=== PATIENT | female | born 1975 | race American Indian/Alaskan Native ===

== ENCOUNTER 2021-08-11 07:00 | Day surgery (SDC) | payer BC ==
[2021-08-08 10:35] LABS: Hematocrit 38.4 % (30.3-42.9); Hemoglobin 12.5 gm/dl (10.1-14.3); Mean Corpuscular HGB Conc 33 % (30-34); Mean Corpuscular Volume 84 fl (79-97); Platelet Count 323 K/mm3 (140-440); Red Blood Count 4.56 M/mm3 (3.65-5.03); Red Cell Distribution Width 13.9 % (13.2-15.2)
--- NOTE | 2021-08-10 12:50 | Short Stay Summary ---
Short Stay Documentation Date of service: 08/04/21 Narrative H&P: Menstrual History: LMP (date): 07/21/2021 LMP - Character: heavy LMP - Reliable: definite Menarche: 10 Menses interval: irregular days Menstrual flow: 7 days On BCP's at conception: no Date of positive (+) home preg. 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 Uterine Surgery (not C/S): negative Operations: Breast Reduction: (2007) PROBATION WORKER Surgery (10/14/2010) Hysteroscopic polypectomy Gastric Bypass: Sleeve (08/13/2015) yuliet Johnson; revision (2018) D&C:(2010) Cholecystectomy (2016) Abnormal PAP: negative Uterine Anomaly: positive, fibroid SUNIL Exposure: negative Infertility: negative Infection History HIV Risk Eval: no Hx of STD: none Active Medications (reviewed today): ibuprofen unspecified unspecified (ibuprofen) phentermine unspecified unspecified (phentermine) multivitamin tablet (multivitamin) Vitamin D3 50 mcg (2,000 unit) capsule (cholecalciferol (vitamin d3)) ferrous sulfate 325 mg (65 mg iron) tablet (ferrous sulfate) 1 tablet by mouth once a day Epiduo Forte 0.3-2.5% gel with pump (adapalene-benzoyl peroxide) Hair, Skin and Nails Advanced 3.3 mg iron-25 mcg tablet (multivit [id number] 186) Current Allergies (reviewed today): No known allergies Past Medical History: h/o Hypertension Allergies-seasonal Blood Transfusion (06/23/2020) Fe infusion (~2016)(2020) h/o Anemia Vitamin D deficiency Endometrial polyps (2010)(2020) Past Surgical History: Reviewed history from 07/18/2021 and no changes required: Breast Reduction: (2007) PROBATION WORKER Surgery (10/14/2010) Hysteroscopic polypectomy Gastric Bypass: Sleeve (08/13/2015) yuliet Johnson; revision (2017) D&C:(2010) Cholecystectomy (2016) Family History Summary: Reviewed history Last on 07/18/2021 and no changes required:08/10/2021 Other Family Member - Has No Family History of Uterine Cancer - Entered On: 12/01/2017 Other Family Member - Has No Family History of Small Bowel Cancer - Entered On: 12/01/2017 Other Family Member - Has No Family History of Stomach Cancer - Entered On: 12/01/2017 Other Family Member - Has No Family History of Pancreatic Cancer - Entered On: 12/01/2017 Other Family Member - Has No Family History of Ovarvian Cancer - Entered On: 12/01/2017 Other Family Member - Has No Family History of Kidney/Urinary Tract Cancer - Entered On: 12/01/2017 Other Family Member - Has No Family History of Spontaneous DVT-PE - Entered On: 12/01/2017 Other Family Member - Has No Family History of Colon Cancer - Entered On: 12/01/2017 Other Family Member - Has No Family History of Brain Cancer - Entered On: 12/01/2017 Other Family Member - Has No Family History of Biliary Tract Cancer - Entered On: 12/01/2017 MGM - Has Family History Breast Cancer - Entered On: 12/01/2017 General Comments - FH: Family History Breast Cancer MGM No Family History of Colon Cancer No Family History of Ovarvian Cancer No Family History of DVT/PE on OCP Social History: Reviewed history from 11/07/2017 and no changes required: Patient is Smoking History: Patient has never smoked. Risk Factors: Smoked Tobacco Use: Never smoker Smokeless Tobacco Use: Never Passive Smoke Exposure: no HIV High Risk Behavior: no Exercise: yes Seatbelt Use: 100 % PAP Smear History: Date of Last PAP Smear: 07/18/2021 Results: Normal Alcohol Use: yes Type: occ Drinks per day: social Drug Use: no Previous Tobacco Use: Signed On - 07/18/2021 Smoked Tobacco Use: Never smoker Smokeless Tobacco Use: Never Passive Smoke Exposure: no HIV High Risk Behavior: no Caffeine Use: <1 drinks per day Exercise: yes Times/wk: 2 Type of Exercise: walking Seatbelt Use: 100 % No Dietary Counseling Reason: pn yes Alcohol Use: yes Type: occ Drinks per day: social Drug Use: no Review of Systems General Denies fever, chills, sweats, anorexia, fatigue, weakness, malaise, weight loss and sleep disorder. Complains of menorrhagia. Denies vaginal discharge, incontinence, dysuria, hematuria, urinary frequency, amenorrhea, abnormal vaginal bleeding, pelvic pain, genital sores, decreased libido, painful periods, painful sex, urinary urgency, hot flashes, vaginal dryness, vaginal itching and vaginal odor. CV Denies chest pains, palpitations, syncope, dyspnea on exertion, orthopnea, PND and peripheral edema. Resp Denies cough, dyspnea at rest, excessive sputum, hemoptysis, wheezing and pleurisy. GI Denies nausea, vomiting, diarrhea, constipation, change in bowel habits, abdominal pain, melena, hematochezia, jaundice, gas/bloating, indigestion/heartburn, dysphagia and odynophagia. Endo Denies cold intolerance, heat intolerance, polydipsia, polyphagia, polyuria and unusual weight change. Breast Denies left breast lump, right breast lump, nipple discharge, bloody discharge from nipple, breast pain, abnormal mammogram and breast enlargement. MS Denies back pain, joint pain, joint swelling, muscle cramps, muscle weakness, stiffness, arthritis, sciatica, restless legs, leg pain at night and leg pain with exertion. Derm Denies rash, itching, dryness and suspicious lesions. Neuro Denies paralysis, paresthesias, headache, seizures, tremors, vertigo, transient blindness, frequent falls, frequent headaches and difficulty walking. Psych Denies depression, anxiety, irritability and mood swings. Eyes Denies blurring, diplopia, irritation, discharge, vision loss, eye pain and photophobia. ENT Denies earache, ear discharge, tinnitus, decreased hearing, nasal congestion, nosebleeds, sore throat and hoarseness. Allergy Denies urticaria, allergic rash, hay fever and recurrent infections. Heme Denies abnormal bruising, bleeding and enlarged lymph nodes. Physical Exam Appearance: well developed, well nourished, no acute distress Other Exams Lungs: no rales, rhonchi, or wheezes Heart: S1, S2, no murmur, rub, or gallop Genitourinary Exam Uterus: deferred for EUA Impression & Recommendations: Problem # 1: Excessive and frequent menstruation with irregular cycle (ICD- 626.6) (XNU64-V16.1) Diagnosis explained to patient . Questions answered. Discussed with patient various medical and surgical therapies common for treatment: Hormonal/medical therapy,endometrial ablation or hysterectomy. She desires conservative surgical intervention at this time in the form of D&C with polypectomy. She was informed her heavy bleeding may persist or recur. She desires fertility. Consent reviewed and signed . Possible laparoscopy or laparotomy explained to patient. The risks and alternatives for this surgery were reviewed with the patient. She was informed of possible, but not limited to, bleeding, infection,uterine perforation, scarring that may cause infertility, injury to bowel, bladder, ureters or other adjacent organs. The patient was instructed/informed the following: The normal length of hospital stay for this procedure. Nothing to eat or drink after midnight the evening prior to surgery. Pre-op instruction sheets given. Wound care instructions given. Infection precautions reviewed, patient to call for any signs or symptoms of infection. The usual discomforts associated with this procedure were detailed. Proper use of pain medicines was reviewed. Patient was given ample opportunity to have all her questions answered before signing informed consent. Her updated medication list for this problem includes: Ibuprofen Unspecified Unspecified (Ibuprofen) Multivitamin Tablet (Multivitamin) Vitamin D3 50 Mcg (2,000 Unit) Capsule (Cholecalciferol (vitamin d3)) Hair, Skin And Nails Advanced 3.3 Mg Iron-25 Mcg Tablet (Multivit [id number] 186) Problem # 2: Endometrial polyp (ICD-621.0) (AQQ30-S41.0) Problem # 3: Anemia secondary to blood loss (chronic) (ICD-280.0) (MUM44-I41.0) Problem # 4: Fibroids of uterus; Intramural (ICD-218.1) (FSJ45-V47.1) Problem # 5: Endometrium thickened (ICD-793.5) (ARV34-O55.89) Patient has been reassessed/reevaluated/re-examined. H&P has been reviewed. No interval changes. - Allergies and Medications Current Medications: Allergies No Known Allergies Allergy (Unverified 08/05/21 19:31) Home Medications Medication Instructions Recorded Confirmed Last Taken Type Elderberry Fruit and Flower [Black 1 each PO DAILY 08/05/21 08/05/21 Unknown History Elderberry 575 mg Cap] Ergocalciferol(Vitamin D2)(Nf) 400 unit PO DAILY 08/05/21 08/05/21 Unknown History [Vitamin D (Nf)] Ibuprofen [Motrin] 600 mg PO Q8H PRN 08/05/21 08/05/21 Unknown History Iron [Iron 18 MG TAB] 18 mg PO QDAY 08/05/21 08/05/21 Unknown History - Brief post op/procedure progress note Date of procedure: 08/11/21 Pre-op diagnosis: Menometrorrhagia, thickened endometrium, endometrial polyp, anemia Post-op diagnosis: same Procedure: Operative hysteroscopy with resection of endometrial polyps cervical dilation and uterine curettage Anesthesia: MAC Findings: Thickened endometrium with multiple small endometrial polyps. Surgeon: JORGE RUBI Estimated blood loss: minimal Pathology: list (Endometrial tissue and endometrial polyps) Specimen disposition: to lab Condition: stable - Hospital course Hospital course: Normal - Disposition Condition at discharge: Good Disposition: 01 HOME / SELF CARE / HOMELESS - Discharge Diagnoses (1) Menometrorrhagia Status: Acute (2) Thickened endometrium Status: Acute (3) Endometrial polyp Status: Acute (4) Anemia Status: Acute (5) Fibroids Status: Acute Short Stay Discharge Plan Activity: no restrictions (No sex for 1 week. Ambulate on her property approximately 1 mile a day.) Weight Bearing Status: Weight Bear as Tolerated Diet: regular (Eat small meals frequently for the next 24 hours.) Special Instructions: no heavy lifting (Greater than 25 pound) Follow up with: NICOLE HOGAN DO [Primary Care Provider] - 7 Days JORGE RUBI MD [Staff Physician] - (As scheduled)
[~2021-08-11 07:00] MED LIST: SODIUM CHLORIDE 0.9% IRRIG SOLN 2000 ML IR ONE
[2021-08-11] MEDS ORDERED: LACTATED RINGERS 1,000 ML ONE (07:47)
[2021-08-11] MEDS ORDERED: ONDANSETRON 4 MG/2 ML INJ IV PRN (08:04)
[2021-08-11] MEDS ORDERED: HYDROmorphone 1 MG/1 ML INJ IV PRN ×2 (08:04)
[2021-08-11] MEDS ORDERED: LACTATED RINGERS 1,000 ML IV SCH (08:15)
--- NOTE | 2021-08-11 08:16 | Anesthesia Consultation ---
Anesthesia Consult and Med Hx Date of service: 08/11/21 - Airway Anesthetic Teeth Evaluation: Good ROM Head & Neck: Adequate Mental/Hyoid Distance: Adequate Mallampati Class: Class II Intubation Access Assessment: Probably Good - Pre-Operative Health Status ASA Pre-Surgery Classification: ASA2 Proposed Anesthetic Plan: General - Pulmonary Hx Smoking: No Hx Asthma: No Hx Respiratory Symptoms: No (+2FS) COPD: No Hx Pneumonia: Yes Hx Sleep Apnea: Yes (Prior to gastric sleeve, resolved with weight loss) - Cardiovascular System Hx Hypertension: No - Central Nervous System Hx Psychiatric Problems: No - Gastrointestinal Hx Gastroesophageal Reflux Disease: No (Hiatal hernia) - Endocrine Hx End Stage Renal Disease: No - Hematic Hx Anemia: Yes Hx Sickle Cell Disease: No - Other Systems Hx Alcohol Use: Yes (Occas) Hx Cancer: No Hx Obesity: Yes
[2021-08-11] MEDS ORDERED: MIDAZOLAM 2 MG/2 ML INJ IV NR (09:00)
[2021-08-11] MEDS ORDERED: propofoL 200 MG/20 ML VIAL IV ONE (10:29)
[2021-08-11] MEDS ORDERED: LIDOCAINE MPF (2%) 20 MG/1 ML VIAL 5 ML ONE (10:29)
[2021-08-11] MEDS ORDERED: fentaNYL 100 MCG/2 ML INJ ONE (10:29)
[2021-08-11] MEDS ORDERED: KETOROLAC 30 MG/1 ML INJ ONE (10:56)
[2021-08-11] MEDS ORDERED: ONDANSETRON 4 MG/2 ML INJ ONE (10:56)
[2021-08-11] MEDS ORDERED: dexAMETHasone 20 MG/5 ML VIAL ONE (10:56)
[2021-08-11] MEDS ORDERED: SODIUM CHLORIDE 0.9% IRRIG SOLN 2000 ML IR ONE (10:58)
--- NOTE | 2021-08-11 11:57 | Operative Report ---
Operative Report Operative Report: Date: 08/11/2021 PREOPERATIVE DIAGNOSES: 1. Excessive and frequent menstruation with irregular cycle (ICD-626.6) (GFP29-B74.1 2. Endometrial polyp (ICD-621.0) (DUH64-G62.0) 3. Anemia secondary to blood loss (chronic) (ICD-280.0) (ICD10- D50.0) 4. Fibroids of uterus; Intramural (ICD-218.1) (ILY15-T62.1) 5. Endometrium thickened (ICD-793.5) (ZGV62-U98.89) POSTOPERATIVE DIAGNOSES: 1. Excessive and frequent menstruation with irregular cycle (ICD- 626.6) (XHE26-N07.1 2. Endometrial polyp (ICD-621.0) (MOL88-X40.0) 3. Anemia secondary to blood loss (chronic) (ICD-280.0) (ICD10- D50.0) 4. Fibroids of uterus; Intramural (ICD-218.1) (CPJ25-M92.1) 5. Endometrium thickened (ICD-793.5) (WRZ81-Y50.89) PROCEDURE PERFORMED: 1. Cervical dilation and uterine curettage (D&C). 2. Hysteroscopy. 3. Resection of endometrial tissue and polyps ANESTHESIA: General ESTIMATED BLOOD LOSS: Less than minimal cc. INDICATIONS: This is a 39-year-old female that presents above. PROCEDURE: The patient was seen in the preoperative suite. Expected procedure and postoperative course discussed with her. She was taken to the operative suite where general anesthesia was induced with only the mountain guide and anesthesiologist present. She was placed in a dorsal lithotomy position. She was prepped and draped in the normal sterile fashion. Timeout was performed. Her bladder was drained with the red rubber catheter which produced approximately 10 cc of clear yellow urine. . A bivalve operative speculum was placed in the vagina. The cervix and vagina were grossly normal with no obvious masses or deformities and the anterior lip of the cervix was grasped with the single-tooth tenaculum. The uterus was sounded to ~10 cm. The cervix was progressively dilated to allow the operative hysteroscope. Under direct visualization, the ostia were within normal limits. The endometrial lining appeared to have thickened. However, there was no obvious evidence of malignancy. At this point the Myosure device was used to resect the superficial endometrial tissue and polyps. The hysteroscope was removed and a small sharp curette was placed intrauterine very carefully using anterior wall for guidance. Endometrial curettings were obtained. The endometrial sampling was placed on Telfa pad and sent to Pathology for evaluation, permanent. The hysteroscope was introduced again, no evidence of perforation was noted. At this point procedure was ended. The single-tooth tenaculum and speculum were removed. The cervix was found to be hemostatic. Counts were correct. Patient was taken to the PACU stable. Distention fluid: Normal saline Deficit: 9 mL
--- NOTE | 2021-08-11 12:22 | Post Anesthesia Evaluation ---
- Post Anesthesia Evaluation Patient Participated: Yes Airway Patent: Yes Stable Respiratory Function: Yes Nausea/Vomiting: No Temp > 96.8F: Yes Pain Manageable: Yes Adequeate Hydration: Yes Anesthesia Complications: No Block Receding Appropriately: Not Applicable Patient on Ventilator: No
[2021-08-11 12:59] VITALS: BP 128/81
[2021-08-11] MEDS ORDERED: oxyCODONE /ACETAMINOPHEN 5-325MG TAB PO PRN (13:28)
== END 2021-08-11 13:05 | disposition home or self-care (01) ==
LOC: OR 07:00
PROVIDERS: ATTEND Obstetrics & Gynecology
DX: N84.0 Polyp of corpus uteri (principal); D25.1 Intramural leiomyoma of uterus; D50.0 Iron deficiency anemia secondary to blood loss (chronic); R93.89 Abnormal findings on diagnostic imaging of other specified body structures; G47.30 Sleep apnea, unspecified; E66.9 Obesity, unspecified; K21.9 Gastro-esophageal reflux disease without esophagitis; Z90.49 Acquired absence of other specified parts of digestive tract; Z98.890 Other specified postprocedural states; Z79.899 Other long term (current) drug therapy; Z20.822 Contact with and (suspected) exposure to COVID-19; Z68.34 Body mass index [BMI] 34.0-34.9, adult
CPT/HCPCS: 36415; 58558; 81025; 85027; 88305; J1100; J1885; J2405; J2704; J3010; J3490; J7120; U0003